=== PATIENT | male | born 1955 | race American Indian/Alaskan Native ===

== ENCOUNTER 2021-12-01 12:33 | Emergency (ER) | payer OTHER ==
[~2021-12-01] VITALS: Ht 188 cm; Wt 104.0 kg
[2021-12-01 12:43] VITALS: BP 181/104
[2021-12-01] MEDS ORDERED: LIDO1ADH23 TP (13:49)
[2021-12-01] MEDS ORDERED: CYCL7.5T25 MT (13:49)
[2021-12-01] MEDS ORDERED: NAPR-1176 MT (13:49)
[2021-12-01] MEDS ORDERED: NAPROXEN 250MG TABLET PO ONE (14:00)
== END 2021-12-01 15:02 | disposition home or self-care (01) ==
LOC: ER 12:33
DX: S16.1XXA Strain of muscle, fascia and tendon at neck level, initial encounter (principal); V49.49XA Driver injured in collision with other motor vehicles in traffic accident, initial encounter; Y93.89 Activity, other specified; Y92.89 Other specified places as the place of occurrence of the external cause; Y99.8 Other external cause status
CPT/HCPCS: 99284